=== PATIENT | female | born 1955 | race Caucasian/White ===

== ENCOUNTER → 2016-10-18 | Outpatient (CLI) | payer BC ==
[~2016-10-18] MED LIST: ASPI81TA28 PO; BUSP15TA70 PO; LORA-741 PO; METO25TA56 PO
== END | disposition home or self-care (01) ==
LOC: C.PAPS 11:46
PROVIDERS: ATTEND Obstetrics & Gynecology
DX: Z01.419 Encounter for gynecological examination (general) (routine) without abnormal findings (principal)

== ENCOUNTER 2016-11-07 09:26 | Emergency (ER) | payer BC ==
[~2016-11-07] VITALS: Ht 167.6 cm; Wt 59.3 kg
[~2016-11-07 09:26] MED LIST changes: -ASPI81TA28 PO; -METO25TA56 PO
[2016-11-07 09:31] VITALS: TEMP 36.3; Ht 167.6 cm; Wt 59.3 kg
[2016-11-07] MEDS ORDERED: ASPI81TA28 PO (10:11)
[2016-11-07] MEDS ORDERED: METO25TA56 PO (10:11)
[2016-11-07 10:32] LABS: BASO % 0.1 %; BASO ABS # 0.01 K/uL (0-0.2); COMPLETE YES; EOS % 0.4 %; HEMATOCRIT 38.9 % (37-47); IG% 0.5 %; LYMPH % 17.2 %; LYMPH ABS # 1.28 K/uL (1.2-3.4); MEAN CORPUSCULAR HEMOGLOBIN 32.3 pg (25-34); MEAN CORPUSCULAR HGB CONC 33.7 g/dl (32-36); MEAN PLATELET VOLUME 10.3 fL (7.4-10.4); MONO % 8.6 %; NEUT % 73.2 %; PLATELET COUNT 233 K/uL (130-400); RED BLOOD COUNT 4.05 M/uL (4.2-5.4); WHITE BLOOD COUNT 7.44 K/uL (4.8-10.8)
[2016-11-07 10:50] LABS: BUN/CREATININE RATIO 31.6 (10-20); CREATININE 0.7 mg/dl (0.60-1.20)
[2016-11-07 10:53] LABS: ALB/GLOB RATIO 1.5 (0.9-2)
[2016-11-07 11:37] LABS: BENZODIAZEPINE, URINE NEG (NEG); COCAINE,URINE NEG (NEG); PHENCYCLIDINE, URINE NEG (NEG)
--- NOTE | 2016-11-07 12:15 | EMERGENCY ROOM VISIT NOTE ---
History Report prepared by Trixie: Gita Silva Under the Supervision of: Dr. Warren Stone D.O. First contact with patient: 10:24 Chief Complaint: DIZZY Stated Complaint: ANXIETY Nursing Triage Summary: Pt c/o dizziness that started at 0730 this morning Pt has been using canabis oil to help with anxiety and this morning she drank it rather than placing it under her tongue. She also reports she used more than she usually does History of Present Illness The patient is a 61 year old female who presents to the Emergency Room with complaints of persistent dizziness that began prior to arrival. The patient states that recently she has been using Cannabis oil to help with her anxiety. She states that she is instructed to take 1/8 a teaspoon of the Cannabis, but states that today she took 1/4 teaspoon. The patient additionally notes that she is supposed to let the liquid sit in her mouth for a period of time prior to swallowing, but states that she did not today. She states that she takes the Cannabis intermittently, denying taking it every day. The patient states that an hour after she had gone to work and started feeling dizzy. Per the patient's family member, the patient received the Cannabis prescription from a chiropractor's office. The patient states that she is on 81 mg of aspirin and 25 mg of Metoprolol. She notes a history of atrial fibrillation. She denies any chest pain or shortness of breath today. The patient denies any recent illness, cough, fever, chills, or cold. Source of History: patient Onset: prior to arrival Position: other (global) Quality: other (dizzness) Timing: other (persistent) Associated Symptoms: No SOB, No chest pain, No chills, No cough, No fevers Review of Systems See HPI for pertinent positives & negatives. A total of 10 systems reviewed and were otherwise negative. Past Medical & Surgical Medical Problems: (1) Atrial fibrillation Family History Diabetes mellitus Heart disease Social History Smoking Status: Never Smoker Smokeless Tobacco Use: No Alcohol Use: occasionally Marital Status: Housing Status: lives with significant other Occupation Status: employed Current/Historical Medications Scheduled Aspirin (Aspirin Ec), 81 MG PO DAILY Lorazepam (Ativan), 0.5 MG PO DAILY PRN Metoprolol Tartrate (Lopressor) (Lopressor), 25 MG PO DAILY Allergies Coded Allergies: Sulfa Drugs (Verified Allergy, Intermediate, HIVES, 11/07/16) Physical Exam Vital Signs Date Time Temp Pulse Resp B/P Pulse Ox O2 Delivery O2 Flow Rate FiO2 11/07/16 11:46 67 18 115/75 97 Room Air 11/07/16 09:31 36.3 77 16 127/79 98 Room Air Physical Exam VITAL SIGNS: were reviewed as above. GENERAL: Slightly drowsy and sluggish, but otherwise acting normally. SKIN: Warm dry and pink. HEAD: Normocephalic and atraumatic. OROPHARYNX: Is clear and moist NECK: Supple without lymphadenopathy or meningismus. LUNGS: clear. HEART: Regular rate and rhythm. ABDOMEN: Soft and nontender. EXTREMITIES: Warm and well perfused. NEUROLOGICALLY: Awake alert and oriented without focal deficit. Cranial nerves 2 -12 are intact. There is no pronator drift. Cerebellar testing is within normal limits. There is no nystagmus. There is no facial droop. Speech is clear. Vision is grossly normal. MUSCULOSKELETAL: Good muscle tone. No evidence of trauma. Medical Decision & Procedures Laboratory Results 11/07/16 10:05 Red Blood Count 4.05, Mean Corpuscular Volume 96.0, Mean Corpuscular Hemoglobin 32.3, Mean Corpuscular Hemoglobin Concent 33.7, Mean Platelet Volume 10.3, Neutrophils (%) (Auto) 73.2, Lymphocytes (%) (Auto) 17.2, Monocytes (%) (Auto) 8.6, Eosinophils (%) (Auto) 0.4, Basophils (%) (Auto) 0.1, Neutrophils # (Auto) 5.44, Lymphocytes # (Auto) 1.28, Monocytes # (Auto) 0.64, Eosinophils # (Auto) 0.03, Basophils # (Auto) 0.01 11/07/16 10:05 Test 11/07/16 10:05 11/07/16 10:51 White Blood Count 7.44 K/uL (4.8-10.8) Red Blood Count 4.05 M/uL (4.2-5.4) Hemoglobin 13.1 g/dL (12.0-16.0) Hematocrit 38.9 % (37-47) Mean Corpuscular Volume 96.0 fL (80-100) Mean Corpuscular Hemoglobin 32.3 pg (25-34) Mean Corpuscular Hemoglobin Concent 33.7 g/dl (32-36) Platelet Count 233 K/uL (130-400) Mean Platelet Volume 10.3 fL (7.4-10.4) Neutrophils (%) (Auto) 73.2 % Lymphocytes (%) (Auto) 17.2 % Monocytes (%) (Auto) 8.6 % Eosinophils (%) (Auto) 0.4 % Basophils (%) (Auto) 0.1 % Neutrophils # (Auto) 5.44 K/uL (1.4-6.5) Lymphocytes # (Auto) 1.28 K/uL (1.2-3.4) Monocytes # (Auto) 0.64 K/uL (0.11-0.59) Eosinophils # (Auto) 0.03 K/uL (0-0.5) Basophils # (Auto) 0.01 K/uL (0-0.2) RDW Standard Deviation 43.9 fL (36.4-46.3) RDW Coefficient of Variation 12.5 % (11.5-14.5) Immature Granulocyte % (Auto) 0.5 % Immature Granulocyte # (Auto) 0.04 K/uL (0.00-0.02) Anion Gap 10.0 mmol/L (3-11) Est Creatinine Clear Calc Drug Dose 79.0 ml/min Estimated GFR () 108.4 Estimated GFR (Non- 93.5 BUN/Creatinine Ratio 31.6 (10-20) Calcium Level 9.0 mg/dl (8.5-10.1) Total Bilirubin 0.7 mg/dl (0.2-1) Aspartate Amino Transf (AST/SGOT) 26 U/L (15-37) Alanine Aminotransferase (ALT/SGPT) 35 U/L (12-78) Alkaline Phosphatase 61 U/L (45-117) Total Protein 6.9 gm/dl (6.4-8.2) Albumin 4.1 gm/dl (3.4-5.0) Globulin 2.8 gm/dl (2.5-4.0) Albumin/Globulin Ratio 1.5 (0.9-2) Urine Opiates Screen NEG (NEG) Urine Methadone, Qualitative NEG (NEG) Urine Barbiturates NEG (NEG) Urine Phencyclidine (PCP) Level NEG (NEG) Ur Amphetamine/Methamphetamine NEG (NEG) MDMA (Ecstasy) Screen NEG (NEG) Urine Benzodiazepines Screen NEG (NEG) Urine Cocaine Metabolite NEG (NEG) Urine Marijuana (THC) POS (NEG) Laboratory results as stated above per my review. ECG Indication: other (dizziness) Rate (beats per minute): 70 Rhythm: sinus rhythm Findings: PAC, no acute ischemic change, no ectopy ED Course 1025: Previous medical records were reviewed. The patient was evaluated in room B2. A complete history and physical examination was performed. 1217: I reevaluated the patient and she is doing well. I discussed the exam findings with her and I discussed the treatment plan. She verbalized complete understanding and agreement. She is ready to go home. Medical Decision Differential includes acute coronary syndrome, myocardial infarction, CVA, TIA, anemia, infection, pneumonia, UTI, pyelonephritis, poor nutrition, dehydration, hemp toxicity, electrolyte disturbance,hypoglycemia. This is a 61-year-old female who presents to the ED with a chief complaint of feeling"out of it". The patient states that she is using Hemp oil. She states that she is using's for anxiety. She took double the dose this morning. She states that an hour after doing this she felt like she was leaning to one side and felt a little dizzy. She denies any other significant symptoms. She reports a history of A. fib. She is on metoprolol. She has no other complaints. No recent illness. No trauma. Her vital signs are normal. Her physical exam was normal. CBC is normal, chem she panel was normal other than a BUN of 22. Positive marijuana screen which would like to be positive with use of hemp as it is a derivative of marijuana. EKG showed a sinus rhythm. The patient was told results. She is felt to be stable for discharge. Impression Primary Impression: Dizziness Additional Impression: side efect of hemp oil Scribe Attestation The scribe's documentation has been prepared under my direction and personally reviewed by me in its entirety. I confirm that the note above accurately reflects all work, treatment, procedures, and medical decision making performed by me. Departure Information Dispostion Home / Self-Care Referrals No Doctor, Assigned (PCP) Forms HOME CARE DOCUMENTATION FORM, IMPORTANT VISIT INFORMATION Patient Instructions My [facility] Additional Instructions Your symptoms are likely the result of the hemp oil. Return for any worsening or new concerns. Follow-up with your doctor. Problem Qualifiers
[2016-11-07 12:28] VITALS: BP 126/73; PULSE 73; O2SAT 95
== END 2016-11-07 12:29 | disposition home or self-care (01) ==
LOC: C.EDB 09:27
DX: R42 Dizziness and giddiness (principal); T40.7X5A Adverse effect of cannabis (derivatives), initial encounter; I48.91 Unspecified atrial fibrillation; Z79.82 Long term (current) use of aspirin; Z79.899 Other long term (current) drug therapy; Z83.3 Family history of diabetes mellitus

== ENCOUNTER → 2017-03-04 | Outpatient (CLI) | payer BC ==
[~2017-03-04] MED LIST changes: +ASPI81TA28 PO; -BUSP15TA70 PO; +METO25TA56 PO
[2017-03-04 14:20] LABS: ESTIMATED AVERAGE GLUCOSE 114 mg/dl; HA1C FLAG Normal (Normal)
[2017-03-04 14:48] LABS: BLOOD UREA NITROGEN 12 mg/dl (7-18); BUN/CREATININE RATIO 18.9 (10-20); CALCIUM 9.2 mg/dl (8.5-10.1); CARBON DIOXIDE 29 mmol/L (21-32); CHLORIDE 106 mmol/L (98-107); CREATININE 0.64 mg/dl (0.60-1.20); GLUCOSE 102 mg/dl (70-99); POTASSIUM 3.8 mmol/L (3.5-5.1); SODIUM 140 mmol/L (136-145)
[2017-03-04 14:59] LABS: CHOLESTEROL 232 mg/dl (0-200); HDL CHOLESTEROL 77 mg/dl; LDL CHOLESTEROL CALCULATED 136 mg/dl; TRIGLYCERIDES 96 mg/dl (0-150); VERY LOW DENSITY LIPOPROT CALC 19 mg/dl
== END | disposition home or self-care (01) ==
LOC: C.LABBC 11:07
PROVIDERS: ATTEND Internal Medicine
DX: R73.01 Impaired fasting glucose (principal); R00.2 Palpitations; E78.00 Pure hypercholesterolemia, unspecified

== ENCOUNTER → 2017-03-06 | Outpatient (CLI) | payer BC ==
--- NOTE | 2017-03-07 07:59 | MAMMOGRAPHY REPORT ---
BILATERAL DIGITAL SCREENING MAMMOGRAM TOMOSYNTHESIS WITH CAD: 03/06/2017 CLINICAL HISTORY: Routine screening. Patient has no complaints. TECHNIQUE: Breast tomosynthesis in addition to standard 2D mammography was performed. Current study was also evaluated with a Computer Aided Detection (CAD) system. COMPARISON: Comparison is made to exams dated: 03/04/2016 mammogram, 03/03/2015 mammogram, 03/01/2014 m ammogram, 02/17/2013 mammogram, 02/17/2012 mammogram, and 02/14/2011 mammogram - [facility] er. BREAST COMPOSITION: There are scattered areas of fibroglandular density in both breasts. FINDINGS: No suspicious masses, calcifications, or areas of architectural distortion are noted in ei ther breast. There has been no significant interval change compared to prior exams. Right upper oute r quadrant asymmetry is stable dating back to at least the 2007 exam. IMPRESSION: ACR BI-RADS CATEGORY 2: BENIGN There is no mammographic evidence of malignancy. A 1 year screening mammogram is recommended. The pa tient will receive written notification of the results. Approximately 10% of breast cancers are not detected with mammography. A negative mammographic report should not delay biopsy if a clinically suggestive mass is present. Eugenia Reynolds M.D. /:03/06/2017 14:33:50 Cane Stripper: Carol Jackson, [facility] letter sent: Normal 1/2 BI-RADS Code: ACR BI-RADS Category 2: Benign
== END | disposition home or self-care (01) ==
LOC: C.MAMM 10:28
PROVIDERS: ATTEND Internal Medicine
DX: Z12.31 Encounter for screening mammogram for malignant neoplasm of breast (principal)

== ENCOUNTER → 2017-09-16 | Outpatient (CLI) | payer BC ==
[2017-09-16 11:38] LABS: HEMOGLOBIN A1C 5.6 % (4.5-5.6)
[2017-09-16 14:48] LABS: BLOOD UREA NITROGEN 12 mg/dl (7-18); CALCIUM 9.8 mg/dl (8.5-10.1); CARBON DIOXIDE 28 mmol/L (21-32); CHOLESTEROL 258 mg/dl (0-200); CREATININE 0.66 mg/dl (0.60-1.20); GLUCOSE 112 mg/dl (70-99); POTASSIUM 3.6 mmol/L (3.5-5.1); SODIUM 136 mmol/L (136-145)
[2017-09-16 14:58] LABS: LDL CHOLESTEROL CALCULATED 145 mg/dl
== END | disposition home or self-care (01) ==
LOC: C.LABBC 09:14
PROVIDERS: ATTEND Internal Medicine
DX: Z00.00 Encounter for general adult medical examination without abnormal findings (principal); R73.01 Impaired fasting glucose; E78.00 Pure hypercholesterolemia, unspecified

== ENCOUNTER → 2017-09-22 | Outpatient (CLI) | payer BC ==
[2017-09-22 11:23] LABS: ALBUMIN 4.4 gm/dl (3.4-5.0); TOTAL PROTEIN 7.7 gm/dl (6.4-8.2)
== END | disposition home or self-care (01) ==
LOC: C.LAB1850 10:10
PROVIDERS: ATTEND Internal Medicine
DX: E78.00 Pure hypercholesterolemia, unspecified (principal)

== ENCOUNTER → 2017-12-22 | Outpatient (CLI) | payer BC | END | disposition home or self-care (01) | LOC: C.PAPS 10:14 | PROVIDERS: ATTEND Obstetrics & Gynecology | DX: Z01.419 Encounter for gynecological examination (general) (routine) without abnormal findings (principal); Z11.51 Encounter for screening for human papillomavirus (HPV) ==

== ENCOUNTER → 2017-12-22 | Outpatient (CLI) | payer BC ==
[2017-12-22 17:39] LABS: BLOOD UREA NITROGEN 12 mg/dl (7-18); CALCIUM 9.3 mg/dl (8.5-10.1); CARBON DIOXIDE 28 mmol/L (21-32); CREATININE 0.65 mg/dl (0.60-1.20); GLUCOSE 123 mg/dl (70-99); POTASSIUM 3.7 mmol/L (3.5-5.1); SODIUM 139 mmol/L (136-145)
== END | disposition home or self-care (01) ==
LOC: C.LAB1850 16:06
PROVIDERS: ATTEND Physician Assistant Medical
DX: I48.0 Paroxysmal atrial fibrillation (principal)